=== PATIENT | male | born 1955 | race Caucasian/White ===

== ENCOUNTER 2016-10-26 07:24 | Inpatient (IN) | payer MEDICARE, OTHER ==
[2016-10-24 14:52] LABS: HEMATOCRIT 48.8 % (40.0-51.0); HEMOGLOBIN 15.4 g/dL (13.6-17.8)
[2016-10-24 15:19] LABS: BUN (BLOOD UREA NITROGEN) 17 MG/DL (6-23); CHLORIDE, SERUM 110 MMOL/L (96-112); CO2 (CARBON DIOXIDE) 29 MMOL/L (24-34); CREATININE 0.88 MG/DL (0.70-1.30); GFR AFRICAN AMERICAN 109 ML/MIN (>=60); GFR NON AFRICAN AMERICAN 94 ML/MIN (>=60); GLUCOSE, SERUM 76 MG/DL (60-99); POTASSIUM, SERUM 5.1 MMOL/L (3.5-5.3); SODIUM, SERUM 143 MMOL/L (135-148)
[~2016-10-26] VITALS: Ht 188 cm; Wt 65.3 kg
--- NOTE | ~2016-10-26 | OP ---
Record Of Operation [facility] [address] [place]. [address] NAME: DAO GASPAR : 57 STATUS : ADM IN PAT#: [id number] AGE: 60 ADM/REG DATE : 10/26/16 MR#: [id number] REPORT SERV DATE: 10/26/16 DICTATED BY: LESLY NICHOLSON DATE: 10/26/16 REPORT STATUS : Draft TRANSCRIBED BY: MODL DATE: 10/26/16 DATE OF PROCEDURE: 10/26/2016 PREOPERATIVE DIAGNOSIS: A 5 cm abdominal aortic aneurysm with recent rapid growth. POSTOPERATIVE DIAGNOSIS: A 5 cm abdominal aortic aneurysm with recent rapid growth. PROCEDURE: Endovascular abdominal aortic aneurysm repair (Medtronic Endurant 32 x 16 x 166 main body device from the left and 16 x 24 x 124 right iliac limb). CO-SURGEONS: Dr. Nicholson and Dr. Martin. FOOD [employer] B[employer]ING RAMPMAN: Alejandro. ANESTHESIA: General endotracheal. ESTIMATED BLOOD LOSS: 100 mL. CONTRAST: 90 mL. IV FLUIDS: 800 mL. COMPLICATIONS: None. INDICATION: Mr. Gaspar is a pleasant 60-year-old man with abdominal aortic aneurysm up to 5 cm in diameter now, which has grown rapidly over the past year. He is recommended for elective endovascular repair. DETAILS OF PROCEDURE: After informed consent was obtained, the patient was brought to the endovascular suite and placed in supine position. After administration of anesthesia, he was intubated. He was prepped and draped in the usual sterile fashion. A time-out was performed. I commenced the procedure with ultrasound-guided percutaneous access to the bilateral common femoral arteries. Permanent image of the artery documenting patency was saved and stored in the patient's chart. I accessed an 18-gauge needle and passed a Bentson wire into the abdominal aorta from the left femoral access confirmed under fluoroscopy. I then made a cutdown incision over the access site down to the common femoral artery. I dilated the subcutaneous tract with the 6-Swedish sheath and then placed two ProGlide closure devices in the Preclose technique on the left. The right side was simultaneously accessed in the same manner. We made a cutdown incision over the access site down to the common femoral artery on the right as well. I dilated the subcutaneous tract with a 6-Swedish sheath and then placed two ProGlide closure devices in the Preclose technique on the right as well. We systemically heparinized and then placed 11-Swedish sheaths bilaterally. Marker flush catheter was advanced from the left femoral access and Arabi flush catheter from the right. Abdominal aortogram was performed, which showed a patent infrarenal aorta. The aneurysm is demonstrated. There was no contrast extravasation. Renal arteries were patent Record Of Operation [facility] [address] [place]. [address] NAME: DAO GASPAR : 57 STATUS : ADM IN PAT#: [id number] AGE: 60 ADM/REG DATE : 10/26/16 MR#: [id number] REPORT SERV DATE: 10/26/16 DICTATED BY: LESLY NICHOLSON DATE: 10/26/16 REPORT STATUS : Draft TRANSCRIBED BY: ANTONIO DATE: 10/26/16 bilaterally with no stenosis. There was a small accessory renal artery on the right, which perfuses insignificant amount of the right kidney. Common iliacs were patent. There is ectasia or aneurysm of the distal common iliac artery on the right. Internal and external iliac arteries were patent bilaterally with no aneurysm or stenosis. After that, based on our measurements, we selected a Medtronic Endurant 32 x 16 x 166 main body device from the left. We advanced it over the Amplatz wire up into the level of the renal arteries. Magnified view was then taken and abdominal aortogram repeated. We then deployed the main body device below the lowest left renal artery under fluoroscopy without difficulty. We deployed it down the contralateral gate. After that, we cannulated the contralateral gate from the right femoral access with the Arabi flush catheter. We advanced the catheter into the graft and it spun freely indicating it was within the lumen of the graft. We then placed an Amplatz wire from that site followed by a Marker flush catheter. Retrograde contrast injection was performed through the right femoral sheath. We marked the internal iliac and selected a 16 x 24 x 124 right iliac limb. This was deployed over the Amplatz wire without difficulty. We completed the delivery of the main body device. Delivery systems were removed and sheaths were placed bilaterally. We then used a Reliant balloon to balloon the proximal and distal fixation sites as well as stent overlap sites. Completion of aortogram shows perfect placement of the aortic stent graft with no impingement of flow on the renal arteries or internal iliac arteries bilaterally. The aneurysm was excluded with no significant endoleak visualized. After that, wires and catheters were removed. We replaced the Bentson wires and removed the sheaths bilaterally. Each access site was closed successfully with the ProGlide closure devices in the Preclose technique. We closed the cutdown incisions in layers with 3-0 and 4-0 suture. Sterile dressings were applied bilaterally. The patient tolerated the procedure well with no complications. Dr. Martin now was present and participated in the entire case as dictated. I delivered the main body device from the left and Dr. Martin deployed the iliac limb from the right side and we functioned as co-surgeons throughout the procedure. RAMIN/ANTONIO Lesly Nicholson M.D. / [id number] CC: Lesly Nicholson M.D.
--- NOTE | ~2016-10-26 | OP ---
Record Of Operation [facility] [address] [place]. [address] NAME: DAO SNELL : 57 STATUS : ADM IN PAT#: [id number] AGE: 60 ADM/REG DATE : 10/26/16 MR#: [id number] REPORT SERV DATE: 10/26/16 DICTATED BY: HUSSEIN TENORIO II DATE: 10/26/16 REPORT STATUS : Draft TRANSCRIBED BY: MODL DATE: 10/26/16 DATE OF PROCEDURE: 10/26/2016 SECOND ATTENDING CO-SURGEON: Adeel Nicholson MD PREOPERATIVE DIAGNOSIS: Infrarenal abdominal aortic aneurysm greater than 5 cm. POSTOPERATIVE DIAGNOSIS: Infrarenal abdominal aortic aneurysm greater than 5 cm. Please note, I am a co-surgeon on the case. I am dictating a portion of the note. Remaining portion is found in a note by Dr. Nicholson. I will only be dictating my portion of the note. The patient was taken to the operating room and placed in supine position on the table. General anesthesia was achieved. Protective padding was placed. We then prepped and draped in a sterile fashion. Used ultrasound to identify the right common femoral artery. I performed a puncture, placed a 6-Australian sheath. We removed the 6-Australian sheath and placed a ProGlide device x2 in a Preclose technique. We then passed an 11-Australian sheath. Aortogram was performed, and the main body of the device was deployed by Dr. Nicholson with the ipsilateral limb extending down into the left common iliac. We then cannulated the contralateral gate coming from the right side and we placed a marker catheter and marked the origin of the internal iliac. We then placed the contralateral limb into the contralateral gate and deployed this down into the distal right common iliac artery. We performed an angiogram that demonstrates a possible stenosis in the external iliac, but this was related to the wire that was in place. All the attachment sites of the stent graft were then angioplastied. We performed an angiogram that demonstrates what is possibly a type 3 endoleak coming from the contralateral gate. We then re-ballooned this and a completion now demonstrates no significant endoleak present. There is still some delayed filling seen within the sac with a type 2 endoleak. Both limbs of the stent graft were widely patent. On the right side, we then removed all the wires and catheters and we closed the femoral arteriotomy percutaneously. This was hemostatic. At the end of the procedure, the patient was stable. He tolerated it well. ZACH/ANTONIO Hussein Tenorio II, M.D. / [id number] CC: Adeel Nicholson M.D.
[~2016-10-26 07:24] MED LIST: CLARIT10 PO; CYMBALTA60 PO; LIOR10 PO; LORT7 PO; NORCO1 TAB PO
[2016-10-26 13:10] LABS: BE (BASE EXCESS) -0.9 MEQ/L (0 +/- 2.5); CARBOXYHEMOGLOBIN 1.6 % (0-3); DEVICE NC; HCO3 (ACTUAL BICARBONATE) 26.2 MEQ/L (23-27); HEMOBLOGIN CONTENT 15.4 G/DL (14-18); INSTRUMENT SERIAL # 11843; METHEMOGLOBIN 0.5 % (0-3); O2 CONTENT 20.8 VOL% (18-24); OPERATOR ID 14335; PCO2 (CO2 TENSION) 53 MMHG (35-45); PO2 (O2 TENSION) 110 MMHG (79-93); SAMPLE Arterial; pH 7.32 (7.37-7.43)
[2016-10-27 03:50] LABS: BASOPHILS 0.2 %; BASOPHILS ABSOLUTE 0.02 10/3/uL (0.0-0.16); EOSINOPHILS 0.1 %; EOSINOPHILS ABSOLUTE 0.01 10/3/uL (0.0-0.53); HEMATOCRIT 44.5 % (40.0-51.0); HEMOGLOBIN 14.4 g/dL (13.6-17.8); IMMATURE GRANULOCYTES 0.2 %; IMMATURE GRANULOCYTES ABSOLUTE 0.02 10/3/uL (0.0-0.11); LYMPHOCYTES 11.2 %; MEAN CORPUS HGB CONC 32.4 g/dL (32.0-36.0); MEAN CORPUSCULAR HEMOGLOB 30.9 pg (26.0-34.0); MEAN CORPUSCULAR VOLUME 95.5 fL (80-100); MEAN PLATELET VOLUME 9.3 fL (9.2-13.0); MONOCYTES 8.4 %; MONOCYTES ABSOLUTE 0.75 10/3/uL (0.21-1.20); NEUTROPHILS 79.9 %; NEUTROPHILS ABSOLUTE 7.16 10/3/uL (2.02-8.40); PLATELET COUNT 154 10/3/uL (150-400); RBC DISTRIBUTION WIDTH 14.5 % (12.0-16.0); RED CELL COUNT 4.66 10/6/uL (4.7-6.1)
[2016-10-27 03:51] LABS: MANUAL DIFF NO %
[2016-10-27 04:02] LABS: BUN (BLOOD UREA NITROGEN) 17 MG/DL (6-23); CALCIUM, SERUM 8.4 MG/DL (8.5-10.4); CHLORIDE, SERUM 105 MMOL/L (96-112); CO2 (CARBON DIOXIDE) 26 MMOL/L (24-34); GFR AFRICAN AMERICAN 113 ML/MIN (>=60); GFR NON AFRICAN AMERICAN 98 ML/MIN (>=60); POTASSIUM, SERUM 4.5 MMOL/L (3.5-5.3); SODIUM, SERUM 138 MMOL/L (135-148)
[2016-10-27 04:04] LABS: GLUCOSE, SERUM 104 MG/DL (60-99)
[2016-10-27] MEDS ORDERED: ASAB (11:58)
[2016-10-27] MEDS ORDERED: LIPITOR40 PO (11:59)
== END 2016-10-27 12:22 | disposition home or self-care (01) | DRG 269 ==
LOC: ENRESERVDT → ENRESERV → ENRESERVTM → SDC/OF 07:24 → PACU 11:40 → CVICU 12:16
PROVIDERS: Surgery
PROC: 04V03DZ Restriction of Abdominal Aorta with Intraluminal Device, Percutaneous Approach (ICD-10-PCS; principal; 2016-10-26 10:00)
DX: I71.4 Abdominal aortic aneurysm, without rupture (principal); I10 Essential (primary) hypertension; F17.210 Nicotine dependence, cigarettes, uncomplicated; J44.9 Chronic obstructive pulmonary disease, unspecified; Z80.3 Family history of malignant neoplasm of breast; Z79.899 Other long term (current) drug therapy
CPT/HCPCS: 36600; 80048; 82805; 82962; 85014; 85018; 85025; 87641; 93005; A9270-GY; C1725; C1760; C1769; C1876; C1894; J0690; J2250; J2370; J2405; J2710; J2720; J3010; Q9967